=== PATIENT | female | born 1930 | race Caucasian/White ===

== ENCOUNTER → 2020-08-17 | Outpatient (CLI) | payer OTHER ==
[~2020-08-17] VITALS: Ht 7.6 cm; Wt 68.0 kg
[~2020-08-17] MED LIST: AMITRIPTYLINE H25 M2 PO; APAP650 PO; CENTRUM SILVER1 EAC4 PO; CITRACAL + BON1 EACH PO; CO Q-10200 MG PO; COLACE100 MG PO; COZAAR 25 MG TA25 M1 PO; FISH OIL 1,0001 EAC5 PO; GABAPENTIN 100100 MG PO; IBUPROFEN 400400 M1 PO; LUMIGAN2.5 M1 OP; METAMUCIL POWD288 GM PO; MIRALAX255 GM PO; NEURONTIN 300300 M1 PO; NORVASC 2.5 MG2.5 M1 PO; OCUVITE TABLET1 EAC1 PO; OSTEO BI-FLEX1 EAC1 PO; OXYCODONE HCL 55 MG PO; REFRESH OPTIVE10 ML OPHTHALMIC; ROXICODONE5 MG PO; SUSTANE EYE DROPS; SYNTHROID75 MCG PO; TUMS PO; VIACTIV SOFT C1 EACH PO
[2020-08-17 10:13] VITALS: BP 161/79
--- NOTE | 2020-08-17 10:29 | NUR ---
Pain Clinic Assessment: 1. History of Osteoarthritis: BACK AND BILAT KNEES History of Rheumatoid Arthritis: 2. Height: 5 ft. 3 in. 7.6 cm. Weight: 150.0 lb. oz. 68.040 kg. Patient's BMI: 01945.8 3. Vital Signs: BP: 161/79 Pulse: 79 Resp: 18 Temp: 02 Sat: 99 ECG Mon: 4. Pain Intensity: 5 TO 10 5. Fall Risk: Dizziness: N Needs help standing or walking: N Fallen in the last 3 months: N Fall risk comments: Pt lives with her anil and is here with her son. 6. Patient on Blood Thinner: None 7. History of Hypertension: Y 8. Opioid Therapy greater than 6 weeks: N Opiate Contract Signed: 9. Risk Assessment Tool Provided: low-1 10. Functional Assessment Tool: 50/70 11. Recreational Drug Use: Never Drug Type: Tobacco Use: Never Smoker Tobacco Type: Amount or Packs/day: How Many Years: Alcohol Use: No Frequency: Quant:
--- NOTE | 2020-08-18 11:46 | HPC ---
[facility] [place] [address] PAIN MANAGEMENT CONSULTATION Name: KEENA GOMEZ Room #: [facility].#: [id number] Admission: 08/17/20 Attend Phys: Jordi Hargrove DO Discharge: Date of : [birth year] Report #: [id number] THIS REPORT FOR: cc: Daisha Reveles MD, Alisa B. MD Johnson, James E. DO ~ DATE OF SERVICE: 08/17/2020 CHIEF COMPLAINT: Low back pain, right lower extremity pain with paresthesias. HISTORY OF PRESENT ILLNESS: As you know, the patient is a very pleasant 89-year-old female who reports acute onset of low back pain, right lower extremity pain that presented after a retroperitoneal bleed that occurred in early 2015. The patient was seen at the pain clinic, at that time started on neuropathic medication and has been lost to followup visit. She indicates that she had been recently sent for rehabilitation and this exacerbated her right leg pain radiating all the way down towards the foot. She indicates this reoccurs on 06/25/2020. She has been out of rehab for about 3 weeks, but continues to experience symptoms that radiate on the right leg where her previous neuropathic issues were present. She has been referred to our service to discuss options for treatment. She states that she has taken oxycodone in the past with good benefit. She is currently taking gabapentin 1200 mg 3 times a day, which is appropriate for neuropathic symptoms. She has been referred to our clinic to discuss options for treatment. The patient indicates today her pain is periodic. She describes the pain as burning, shooting, throbbing, numbness and tingling. Places current pain score 5/10, daily average of 5/10, worst pain has been is 10/10. The patient indicates her pain was exacerbated with rehabilitation. She states her pain is improved with rest, gabapentin and oxycodone. She has been referred to our service to discuss options for treatment. PAST MEDICAL HISTORY: 1. Right lower extremity neuropathy. 2. Hypothyroidism. 3. Hypertension. 4. Osteoarthritis. 5. Chronic anemia. 6. Gastroesophageal reflux disease. 7. Emotional problems. 8. Degenerative joint disease. PAST SURGICAL HISTORY: 1. Total hip arthroplasty. 2. Herniorrhaphy. [address] [address] PAIN MANAGEMENT CONSULTATION Name: KEENA GOMEZ Room #: [facility].#: [id number] Admission: 08/17/20 Attend Phys: Jordi Hargrove DO Discharge: Date of : [birth year] Report #: [id number] 3. Emergency surgery for retroperitoneal bleed. 4. Cholecystectomy. SOCIAL HISTORY: The patient denies tobacco, alcohol, IV or illicit drug use. She is retired, retired about 40 years ago, not receiving workmen's compensation nor is trying to obtain discrete benefits. She is not in litigation in regards to pain. She is accompanied by her son, present in room today. REVIEW OF SYSTEMS: Positive for fatigue and weakness, eye disease, wearing corrective eyewear, cataracts, shortness of breath walking or lying flat, changes in bowel movement with intermittent constipation, nocturia, incontinence and dribbling to urine, numbness and tingling sensations involving the right lower extremity, nervousness, depression, insomnia, thyroid disease, heat and cold intolerance and anemia. All other review of systems negative per 12-point review of systems other than those listed in history of present illness. Pain impact score 50/70 indicating severe interference of daily activities secondary to pain. IMAGING: There is no imaging available. ALLERGIES: FENTANYL, MELOXICAM, METHYLPREDNISOLONE, PREDNISONE, TRAMADOL, VICODIN. CURRENT MEDICATIONS: Docusate sodium 100 mg once a day, gabapentin 1200 mg 3 times a day, Lumigan 1 drop each eye per day, acetaminophen ER 650 mg q. 8 hours, Ocuvite 1 tab per day, MiraLax 17 grams once a day, calcium carbonate 1 tab per day, levothyroxine 75 mcg per day, amlodipine 2.5 mg once a day, amitriptyline 25 mg p.o. at bedtime. PQRS: The patient has known arthritic changes of the lumbar spine, bilateral knees. No rheumatoid arthritis. She is placing current pain score at 5-10/10. She is a fall risk, but has not had a fall in last 3 months. She is utilizing ambulatory device in the form of a roller walker. She is not on blood thinners, but is treated for hypertension. She is not on chronic opioids and based on our assessment tool has a low opioid addiction potential. Pain impact again 50/70, severe interference of daily activities secondary to pain. PHYSICAL EXAMINATION: VITAL SIGNS: Blood pressure 161/79, pulse 79, respiratory rate 18 and unlabored. The patient is 99% on room air. Height 5 feet 3 inches tall, weight 150 pounds, BMI calculated 17.9. GENERAL: Well-developed, well-nourished, well-hydrated 89-year-old female appearing her stated age. She is in no acute distress, awake, alert and oriented x 3. Current pain score is rated anywhere from 5-10/10. HEENT: Normocephalic, atraumatic. Pupils equal, round and reactive to light. [facility] [address] [place] [address] PAIN MANAGEMENT CONSULTATION Name: KEENA GOMEZ Room #: REG [facility]#: [id number] Admission: 08/17/20 Attend Phys: Jordi Hargrove DO Discharge: Date of : [birth year] Report #: [id number] Extraocular muscles are intact. Sclerae nonicteric without injection. NEUROLOGIC: Speech is fluent. The patient deemed a fair historian. LUNGS: Appear clear. No wheeze, rhonchi or rales. CARDIOVASCULAR: Regular. EXTREMITIES: Show no clubbing, no cyanosis. No appreciable edema. MUSCULOSKELETAL: Lower extremity strength is weakened on the right compared to left, this is noted with hip flexion, knee extension, specifically on the right when compared to left. Muscle bulk and tone is variant, comparing left lower extremity to right. There is a reduction in dorsiflexion and plantar flexion of the right foot when compared to left. Seated straight leg raising negative. Supine straight leg raising is positive for pain, which radiates down the right lower extremity. Gait is extremely antalgic favoring right lower extremity. Ankle clonus negative. Babinski is negative. ASSESSMENT: 1. Peripheral neuropathy of the right lower extremity. 2. Possible lumbar radiculopathy. 3. Chronic intractable pain. PLAN: 1. The patient based on our physical exam and history she provides and the description, she uses in regards to pain appears to be suffering from exacerbation of her peripheral neuropathy, though we cannot rule out fully a lumbar radiculopathy. The patient is unable to determine whether or not her symptoms are similar to the symptoms she had after a retroperitoneal bleed or if this is a new distribution of pain in intensity. I do not have any imaging to review for the lumbar spine, but given her age, there is a likelihood she has central canal stenosis and possibly even neural foraminal stenosis. Distribution of symptoms does fit with neurologic issue, though with her retroperitoneal bleed there could have been a nerve injury that has continued to be problematic. She and I discussed at length today that without any definitive imaging of the lumbar spine we cannot fully provide the patient with the treatment options that might be available. We did discuss in generalities the treatments today. The following was discussed with the patient. We discussed that treatment options could involve physical therapy, stretching exercises, core strengthening as a treatment course. The patient indicates that she had difficulty with rehabilitation and believes that may have been the source of recurrence of pain. She has plans to discuss this with Dr. Reveles at their followup visit tomorrow. We discussed neuropathic medications with suggestions of treatment to add to her current gabapentin with either amitriptyline, nortriptyline or Cymbalta. The patient had voiced that oxycodone has been beneficial in the past. We have advised the patient we are not taking on any new opioid management patients at this time. She would have to seek this treatment through her PCP. We also discussed spinal cord stimulator therapy as an option, which would provide benefit, not only for her peripheral neuropathic [address] [address] PAIN MANAGEMENT CONSULTATION Name: KEENA GOMEZ Room #: [facility]#: [id number] Admission: 08/17/20 Attend Phys: Jordi Hargrove DO Discharge: Date of : [birth year] Report #: [id number] symptoms from her nerve injury, but if there is any component of lumbar radiculopathy. It would also provide good benefit. After reviewing risks and benefits of all proposed treatment options, the following was agreed upon. 2. The patient has requested a prescription of oxycodone 5 mg dose. She apparently has taken these in the past with good efficacy. Based on the physical exam and the history she provides, I do not see a reason why the patient could not be initiated on a medication on a p.r.n. basis. I would caution the prescriber to be vigilant as the patient is older and does have some difficulty with some of her memory and this could exacerbate symptoms. She apparently has had tramadol, which caused her severe dyspepsia and disorientation. She has known allergy to MORPHINE, which was more of a dysphoric affect and not a true allergy. She states she tolerates oxycodone well. She can discuss this with the primary care team. We did advise the patient we are not taking on new opioid medication management patients at this time, though given her age and her improvement in symptoms with the medication. This may be an appropriate treatment option. We will defer to the primary team if they wish to initiate this therapy with this patient. 3. I have provided the patient with information about a spinal cord stimulator. I do feel this would provide benefit, not only for her peripheral neuropathy secondary to the retroperitoneal bleed and the injury to the nerve in the right leg, but also if there is a contributing component of lumbar radiculopathy the cord stimulator would provide good benefit. We have given the patient information about the spinal cord stimulator today in written form and she can evaluate the websites in regards to the device. We recommend the [employer] spinal cord stimulator as the treatment option for this patient. She will review these information if she is interested, she will contact our clinic as she will have to be seen by Psychiatry to progress towards the trial implantation. If she wishes to move forward with this she will contact our clinic, so that we can get her an appointment with Psychiatry for the evaluation necessary to meet Medicare criteria. 4. We wish to thank Dr. Reveles for the referral of the patient to our clinic. We will keep you apprised of response to treatment as we address symptoms with interventional therapies. Again, we wish to thank you for the opportunity to see this patient in consultation. <ELECTRONICALLY SIGNED> By: Jordi Hargrove DO 08/18/20 [id number] Jordi Hargrove DO /nt
== END ==
LOC: PAIN 06:54
PROVIDERS: ATTEND Anesthesiology Pain Medicine
DX: M54.5 Low back pain (principal); R20.2 Paresthesia of skin; G62.9 Polyneuropathy, unspecified; G89.29 Other chronic pain; Z88.8 Allergy status to other drugs, medicaments and biological substances; Z79.899 Other long term (current) drug therapy